=== PATIENT | female | born 1960 | race American Indian/Alaskan Native ===

== ENCOUNTER 2017-01-03 16:57 | Emergency (ER) | payer SELFPAY ==
[2017-01-03] MEDS ORDERED: CATAPRES ONE (17:22)
[2017-01-03] MEDS ORDERED: CATAPRES PO ONE (17:32)
--- NOTE | 2017-01-03 17:59 | Emergency Department Report ---
- General Chief complaint: High BP Stated complaint: HYPERTENSION Time Seen by Provider: 01/03/17 17:58 Source: patient, EMS Mode of arrival: Stretcher Limitations: No Limitations - History of Present Illness Initial comments: Pt is a 56 yr old female with a history of HTN who was sent in the by the local clinic for uncontrolled HTN. As per patient and clinic paperwork they reported her SBP to be "300". Pt reports she just went in to get her Rx filled for lisinopril 40mg daily. Pt was immediately given norvasc 10mg PO and sent to the ED. Pt was then given clonidine 0.2mg PO, prior to being seen. Pt reports she has no complaints and feels herself. 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 Otherwise no HERNANDEZ, dizziness, vision changes, NVD , CP, SOB, abd pain, or any other complaints. Severity scale (0 -10): 0 - Related Data Previous Rx's Medication Instructions Recorded Last Taken Type amLODIPine [Norvasc] 10 mg PO DAILY #30 tab 01/03/17 Unknown Rx Allergies Allergy/AdvReac Type Severity Reaction Status Date / Time No Known Allergies Allergy Unverified 12/17/14 13:00 ED Review of Systems ROS: Stated complaint: HYPERTENSION Other details as noted in HPI Comment: All other systems reviewed and negative Constitutional: denies: chills, fever Eyes: denies: eye pain, eye discharge, vision change ENT: denies: ear pain, throat pain Respiratory: denies: cough, shortness of breath, wheezing Cardiovascular: denies: chest pain, palpitations Endocrine: no symptoms reported Gastrointestinal: denies: abdominal pain, nausea, diarrhea Genitourinary: denies: urgency, dysuria, discharge Musculoskeletal: denies: back pain, joint swelling, arthralgia Skin: denies: rash, lesions Neurological: denies: headache, weakness, paresthesias Psychiatric: denies: anxiety, depression Hematological/Lymphatic: denies: easy bleeding, easy bruising ED Past Medical Hx - Past Medical History Hx Hypertension: Yes (No meds x 1 year) Hx CVA: Yes - Social History Smoking Status: Former Smoker - Medications Home Medications: Home Medications Medication Instructions Recorded Confirmed Last Taken Type amLODIPine [Norvasc] 10 mg PO DAILY #30 tab 01/03/17 Unknown Rx ED Physical Exam - General Limitations: No Limitations General appearance: alert, in no apparent distress - Head Head exam: Present: atraumatic, normocephalic - Eye Eye exam: Present: normal appearance - ENT ENT exam: Present: mucous membranes moist - Neck Neck exam: Present: normal inspection - Respiratory Respiratory exam: Present: normal lung sounds bilaterally. Absent: respiratory distress - Cardiovascular Cardiovascular Exam: Present: regular rate, normal rhythm, normal heart sounds. Absent: irregular rhythm, systolic murmur, diastolic murmur, rubs, gallop, clicks, S3, S4 - GI/Abdominal GI/Abdominal exam: Present: soft, normal bowel sounds - Extremities Exam Extremities exam: Present: normal inspection - Back Exam Back exam: Present: normal inspection - Neurological Exam Neurological exam: Present: alert, oriented X3 - Psychiatric Psychiatric exam: Present: normal affect, normal mood - Skin Skin exam: Present: warm, dry, intact, normal color. Absent: rash ED Course Vital Signs 01/03/17 01/03/17 01/03/17 17:03 17:08 17:15 Temperature Pulse Rate 90 82 Respiratory 11 L 16 Rate Blood Pressure 300/100 Blood Pressure [Right] O2 Sat by Pulse 99 100 Oximetry 01/03/17 01/03/17 01/03/17 17:28 17:30 17:31 Temperature 98.5 F Pulse Rate 83 77 Respiratory 16 16 16 Rate Blood Pressure Blood Pressure 220/110 [Right] O2 Sat by Pulse 100 100 98 Oximetry 01/03/17 01/03/17 01/03/17 17:45 17:52 18:00 Temperature Pulse Rate 82 83 77 Respiratory 18 16 18 Rate Blood Pressure 179/77 Blood Pressure 179/77 [Right] O2 Sat by Pulse 99 99 98 Oximetry 01/03/17 01/03/17 01/03/17 18:16 18:30 18:46 Temperature Pulse Rate 72 78 65 Respiratory 11 L 13 11 L Rate Blood Pressure 242/78 244/73 244/73 Blood Pressure 244/73 [Right] O2 Sat by Pulse 99 100 100 Oximetry 01/03/17 01/03/17 01/03/17 18:59 19:00 19:20 Temperature Pulse Rate 80 74 72 Respiratory 16 13 17 Rate Blood Pressure 176/55 156/51 Blood Pressure 176/55 [Right] O2 Sat by Pulse 100 100 100 Oximetry ED Medical Decision Making - Lab Data Result diagrams: 01/03/17 17:46 01/03/17 17:46 - Medical Decision Making I instructed the patient she needs to see a clinical lab assistant and follow up with her PMD at the clinic for tighter BP control. She may need a second BP controlling agent. Pt understood. I prescribed Norvasc 10mg PO daily for the patient and instructed her to keep a BP journal daily and instructed her on how to manage that. Pt to follow up. Pt instructed to return if she develops any HERNANDEZ, neck pain, blurry vision, CP, or SOB. Pt understood Critical care attestation.: If time is entered above; I have spent that time in minutes in the direct care of this critically ill patient, excluding procedure time. ED Disposition Clinical Impression: Hypertension Disposition: DISCHARGED TO HOME OR SELFCARE Is pt being admited?: No Condition: Stable Instructions: Hypertension (ED) Prescriptions: amLODIPine [Norvasc] 10 mg PO DAILY #30 tab Referrals: PRIMARY CARE, [Primary Care Provider] - 3-5 Days
[2017-01-03 18:14] LABS: Basophils % (Auto) 1.3 % (0.0-1.8); Hematocrit 39.8 % (30.3-42.9); Hemoglobin 12.8 gm/dl (10.1-14.3); Mean Corpuscular HGB Conc 32 % (30-34); Mean Corpuscular Volume 79 fl (79-97); Platelet Count 418 K/mm3 (140-440); Red Blood Count 5.04 M/mm3 (3.65-5.03); Red Cell Distribution Width 15.6 % (13.2-15.2); White Blood Count 7.3 K/mm3 (4.5-11.0)
[2017-01-03 18:17] LABS: Anion Gap 20 mmol/L; Blood Urea Nitrogen 16 mg/dL (7-17); Carbon Dioxide 22 mmol/L (22-30); Chloride 97.1 mmol/L (98-107); Glucose 103 mg/dL (65-100); Potassium 3.7 mmol/L (3.6-5.0); Sodium 135 mmol/L (137-145)
[2017-01-03] MEDS ORDERED: NORMODYNE IV ONE (18:35)
[2017-01-03 18:37] LABS: Mean Corpuscular Hemoglobin 26 pg (28-32)
--- NOTE | 2017-01-03 18:56 | Admit Criteria Form ---
Admission Criteria Documentation: HYPERTENSION Clinical Indications for Admission to Inpatient Care ( Place "X" for any and all applicable criteria): Admission is indicated for ANY ONE of the following(1)(2)(3)(4): [ ]I. Hypertensive emergency, with evidence of acute and progressing target organ disease as indicated by ANY ONE of the following: [ ]a) Hypertensive encephalopathy (eg, confusion, altered mental status) [ ]b) Cerebral infarction [ ]c) Intracranial hemorrhage [ ]d) Myocardial ischemia or infarction [ ]e) Pulmonary edema [ ]f) Aortic dissection [ ]g) Seizure [ ]h) Acute renal insufficiency [ ]i) Papilledema [ ]j) Microangiopathic hemolytic anemia [ ]II. Adrenergic crisis (eg, severe hypertension due to pheochromocytoma crisis, cocaine or amphetamine intoxication, or clonidine withdrawal) [X]III. Severe hypertension (SBP greater than 180 mmHg or DBP greater than 110 mmHg or greater than the 95th percentile for age, gender, and height in pediatric patients) that cannot be controlled (eg, to SBP less than 160 mmHg and DBP less than 100 mmHg in adults) by treatment with oral medication in emergency department or observation care Extended stay beyond goal length of stay may be needed for(11)(12)(13): [ ]a) Persistent hypertensive encephalopathy [ ]b) Continuation of pulmonary edema [ ]c) Recurring or persistent severe hypertension [ ]d) Target organ damage (eg, angina, stroke, aortic dissection) [ ]e) Associated renal insufficiency The original [email or web address] content created by [email or web address] has been revised. The portions of the content which have been revised are identified through the use of italic text or in bold, and [facility] has neither reviewed nor approved the modified material. All other unmodified content is copyright [email or web address]. Please see references footnoted in the original [email or web address] edition 2016
[2017-01-03 19:36] VITALS: BP 156/51
== END 2017-01-03 20:23 | disposition home or self-care (01) ==
LOC: ED 16:57
DX: I10 Essential (primary) hypertension (principal); I63.9 Cerebral infarction, unspecified; Z87.891 Personal history of nicotine dependence
CPT/HCPCS: 36415; 80048; 84484; 85025; 93005; 96374